=== PATIENT | male | born 1950 | race Caucasian/White ===

== ENCOUNTER 2017-01-04 14:49 | Emergency (ER) | payer OTHER ==
[~2017-01-04 14:49] MED LIST: ADV500/50 IH; ART5 PO; CLINDAMYCIN HC300 MG PO; DEP250 PO; DEPAKOTE500 MG PO; FLO4 PO; HYT5 PO; KLO1 PO; LAC PO; LEVAQUIN750 MG PO; LOT20 PO; NOR10 PO; OMEPRAZOLE DR20 M1 PO; REMERON30 MG PO; RIS1 PO; SPIRIVA18 MC1 INH; TOP50 PO; TOVIAZ8 MG PO; XOP1.25 IH
[2017-01-04 19:31] VITALS: BP 120/83
== END 2017-01-04 19:31 | disposition home or self-care (01) ==
LOC: ED 14:49
DX: S16.1XXA Strain of muscle, fascia and tendon at neck level, initial encounter (principal); S09.90XA Unspecified injury of head, initial encounter; G95.29 Other cord compression; J44.9 Chronic obstructive pulmonary disease, unspecified; I10 Essential (primary) hypertension; Z88.1 Allergy status to other antibiotic agents; Z88.8 Allergy status to other drugs, medicaments and biological substances; W17.89XA Other fall from one level to another, initial encounter; Y93.89 Activity, other specified; Y99.8 Other external cause status; Y92.89 Other specified places as the place of occurrence of the external cause
CPT/HCPCS: 72072

== ENCOUNTER 2017-05-15 16:10 | Emergency (ER) | payer OTHER ==
[2017-05-15 19:53] LABS: BASOPHIL % 0.4 % (0-2); PLATELET COUNT 278 x10^3mcL (130-400)
[2017-05-15 20:02] LABS: CALCIUM 8.4 mg/dL (8.5-10.1); CARBON DIOXIDE 26.9 mmol/L (21-32); CHLORIDE SERUM 95 mmol/L (98-107); CREATININE SERUM 0.7 mg/dL (0.7-1.3); GFR1 > 60 mL/min; GLUCOSE SERUM 78 mg/dL (74-106); POTASSIUM SERUM 3.1 mmol/L (3.5-5.1); SODIUM SERUM 129 mmol/L (136-145)
[2017-05-15 20:05] LABS: ALKALINE PHOSPHATASE 106 U/L (46-116); ALT/SGPT 18 U/L (16-63); AST/SGOT 15 U/L (15-37); BILIRUBIN TOTAL 0.3 mg/dL (0.20-1.00); LIPASE 218 IU/L (73-393); TOTAL PROTEIN, SERUM 6.9 g/dL (6.4-8.2)
[2017-05-15 20:06] LABS: ALBUMIN 3.3 g/dL (3.4-5.0)
[2017-05-15 20:08] LABS: RED CELL DISTRIBUTION WIDTH 15.2 % (11.5-14.5)
[2017-05-15 21:52] VITALS: BP 155/86
== END 2017-05-15 21:52 | disposition home or self-care (01) ==
LOC: ED 16:10
PROVIDERS: Emergency Medicine
DX: S22.31XA Fracture of one rib, right side, initial encounter for closed fracture (principal); I10 Essential (primary) hypertension; J44.9 Chronic obstructive pulmonary disease, unspecified; Z88.1 Allergy status to other antibiotic agents; Z88.8 Allergy status to other drugs, medicaments and biological substances; X58.XXXA Exposure to other specified factors, initial encounter; Y93.89 Activity, other specified; Y92.89 Other specified places as the place of occurrence of the external cause; Y99.8 Other external cause status
CPT/HCPCS: 36415; 36600; 83880; J2270; Q0162

== ENCOUNTER 2019-10-30 14:27 | Emergency (ER) | payer OTHER ==
[~2019-10-30] VITALS: Ht 160 cm; Wt 55.3 kg
[2019-10-30 14:40] VITALS: Ht 160 cm; Wt 55.3 kg
[2019-10-30 15:30] LABS: BASOPHIL % 0.7 % (0-2); PLATELET COUNT 335 x10^3mcL (130-400); RED CELL DISTRIBUTION WIDTH 14.6 % (11.5-14.5)
[2019-10-30 15:37] LABS: CALCIUM 7.8 mg/dL (8.5-10.1); CARBON DIOXIDE 28.4 mmol/L (21-32); CHLORIDE SERUM 103 mmol/L (98-107); CREATININE SERUM 1.2 mg/dL (0.7-1.3); GFR1 > 60 mL/min; GLUCOSE SERUM 71 mg/dL (74-106); POTASSIUM SERUM 4.5 mmol/L (3.5-5.1); SODIUM SERUM 138 mmol/L (136-145)
[2019-10-30 15:42] LABS: ALKALINE PHOSPHATASE 78 U/L (46-116); ALT/SGPT 15 U/L (16-63); AST/SGOT 11 U/L (15-37); BILIRUBIN TOTAL 0.1 mg/dL (0.20-1.00); MAGNESIUM 2.3 mg/dL (1.8-2.4); TOTAL PROTEIN, SERUM 6.4 g/dL (6.4-8.2)
[2019-10-30 15:43] LABS: ALBUMIN 3.1 g/dL (3.4-5.0)
[2019-10-30 17:56] VITALS: BP 140/68
[2019-10-30] MEDS ORDERED: LACL PO (22:57)
[2019-10-30] MEDS ORDERED: MYRBETRIQ25 MG PO (22:57)
[2019-10-30] MEDS ORDERED: COLACE100 MG PO (22:58)
[2019-10-30] MEDS ORDERED: SYMBICORT1 AE3 IH (22:58)
[2019-10-31] MEDS ORDERED: NOR10T PO (00:15)
== END 2019-10-30 17:56 | disposition home or self-care (01) ==
LOC: ED 14:27
PROVIDERS: Emergency Medicine
DX: R07.89 Other chest pain (principal); D64.9 Anemia, unspecified; R20.2 Paresthesia of skin; I10 Essential (primary) hypertension; M19.90 Unspecified osteoarthritis, unspecified site; J44.9 Chronic obstructive pulmonary disease, unspecified; F17.210 Nicotine dependence, cigarettes, uncomplicated; Z88.2 Allergy status to sulfonamides; Z88.6 Allergy status to analgesic agent; Z88.8 Allergy status to other drugs, medicaments and biological substances
CPT/HCPCS: 36415; Q0092

== ENCOUNTER 2020-05-30 23:41 | Emergency (ER) | payer OTHER ==
[~2020-05-30] VITALS: Ht 157.5 cm; Wt 66.2 kg
[~2020-05-30 23:41] MED LIST changes: +COLACE100 MG PO; +LACL PO; +MYRBETRIQ25 MG PO; +NOR10T PO; +SYMBICORT1 AE3 IH
[2020-05-31 00:50] LABS: BASOPHIL % 0.9 % (0-2); PLATELET COUNT 265 x10^3mcL (130-400); RED CELL DISTRIBUTION WIDTH 14.2 % (11.5-14.5)
[2020-05-31 00:57] LABS: CALCIUM 8.3 mg/dL (8.5-10.1); CARBON DIOXIDE 26.5 mmol/L (21-32); CHLORIDE SERUM 97 mmol/L (98-107); CREATININE SERUM 0.8 mg/dL (0.7-1.3); GFR1 > 60 mL/min; GLUCOSE SERUM 95 mg/dL (74-106); POTASSIUM SERUM 3.7 mmol/L (3.5-5.1); SODIUM SERUM 131 mmol/L (136-145)
[2020-05-31 01:04] LABS: ALBUMIN 3.3 g/dL (3.4-5.0); ALKALINE PHOSPHATASE 60 U/L (46-116); ALT/SGPT 14 U/L (16-63); AST/SGOT 10 U/L (15-37); BILIRUBIN TOTAL 0.28 mg/dL (0.20-1.00); TOTAL PROTEIN, SERUM 6.5 g/dL (6.4-8.2)
[2020-05-31 02:59] VITALS: BP 148/78
== END 2020-05-31 02:59 | disposition home or self-care (01) ==
LOC: ED 23:41
PROVIDERS: Student in an Organized Health Care Education/Training Program
DX: M54.10 Radiculopathy, site unspecified (principal); E87.1 Hypo-osmolality and hyponatremia; J44.9 Chronic obstructive pulmonary disease, unspecified; Z88.2 Allergy status to sulfonamides; Z88.6 Allergy status to analgesic agent
CPT/HCPCS: J2270